=== PATIENT | female | born 1955 | race Caucasian/White ===

== ENCOUNTER 2019-05-22 01:44 | Day surgery (SDC) | payer OTHER, SELFPAY ==
[2019-05-15 10:19] VITALS: BMI 30.4
[2019-05-22 06:54] VITALS: BP 143/73; PULSE 54; RESP 16; TEMP 36.6; O2SAT 96
[2019-05-22] MEDS: LACTATED RINGERS 1,000 ML 150 ML IV CONT (07:07)
--- NOTE | 2019-05-22 07:38 | WPDANESEPPF ---
Anes - Initial Pre Proc Eval Procedure: Operation Date: 05/22/19 08:00 Proposed Procedures p Screening Colonoscopy - Sav Fuentes MD Date/Time: 05/22/19 07:38 Surgeon: Sav Fuentes MD Pre Op Diagnosis: Neoplasm Screening, Fam Hx of Colon Ca Patient Data Age: 64 Gender: F Height: 1.6 m Weight: 76.4 kg Last Vital Signs Temp 36.6 C 05/22/19 06:54 Pulse 54 L 05/22/19 06:54 Resp 16 05/22/19 06:54 BP 143/73 H 05/22/19 06:54 Pulse Ox 96 05/22/19 06:54 Allergies Allergy/AdvReac Type Severity Reaction Status Date / Time Sulfa (Sulfonamide Allergy Unknown Hives Verified 05/22/19 06:50 Antibiotics) doxycycline AdvReac Unknown Nausea Verified 05/22/19 06:50 poison sergio extract AdvReac Unknown Skin Verified 05/22/19 06:50 Reaction Home Medications Medication Instructions Recorded Confirmed Type aspirin 81 mg tablet,delayed 81 mg PO DAILY 03/25/19 05/22/19 History release diphenhydramine HCl 25 mg capsule 25 mg PO DAILY PRN cap 03/25/19 05/22/19 History lisinopril 10 mg tablet 10 mg PO DAILY 03/25/19 05/22/19 History metoprolol tartrate 25 mg tablet 25 mg PO BID #180 tablet 04/21/19 05/22/19 Rx clotrimazole [Lotrimin AF 1 applic TOPICAL BID 05/15/19 05/22/19 History (clotrimazole)] Patient hx anesthesia problems: none Family hx anesthesia problems: none PMFSH Past Medical History Medical History (Updated 05/22/19 @ 07:39 by Narinder Gilmore MD) Bunion of right foot (~2004) Elevated fasting glucose Elevated LDL cholesterol level Essential (primary) hypertension Overweight (BMI 25.0-29.9) Surgical History Surgical History History of colonoscopy (~05/18/13) History of hysterectomy (~1996) History of left oophorectomy History of right oophorectomy Social History Social History Smoking status: Never smoker Alcohol intake: current Anes - Eval Final PreProcedure Day of Procedure 05/22/19 07:38 Patient weight: overweight Heart: regular rate and rhythm Lungs: clear to auscultation and normal air movement Airway: Mallampati scale class II Neurological: alert and oriented Last oral intake: >/= 8 hours ASA classification: II Emergent: no Anesthetic plan: proceed Anesthesia type and monitoring: general GIVS Informed Consent: The patient's anesthetic plan and its attendant risks and benefits were discussed with the patient/family/POA. Questions were solicited and answers provided to the satisfaction of the patient/family/POA.
--- NOTE | 2019-05-22 08:07 | P.CONGI_ITS ---
Assessment and Plan Additional Plan This is a 64-year-old white female patient seen in evaluation at the request of Dr. Weiner. Patient presents for neoplasia screening. Her father had colon cancer. Her current weight appetite bowel movements are normal. She denies abdominal pain. She denies any blood in her stools. Her bowel movements are regular. Family history is significant her father had colon cancer. Past medical history is significant for hypertension, she has elevated cholesterol. Current medications include Lotrimin. Diphenhydramine. Lisinopril. Metoprolol. She has allergies include sulfa. Physical exam reveals her to be alert. Vital signs stable. HEENT exam unremarkable. Lungs are clear to auscultation and percussion. Heart is without murmur or extra sounds. Abdominal exam bowel sounds are present soft nontender with no hepatosplenomegaly. Digital external rectal exam is normal. Impression 1. Family history of colon cancer. Her father had colon cancer. Last colonoscopy was in 2013. Plan is for colonoscopy at this time. GI Consult Note Consult date/time: 05/22/19 08:07 HPI: Ashlee Cody is a 64 year old female [facility] Past Medical History Medical History (Updated 05/22/19 @ 07:39 by Narinder Gilmore MD) Bunion of right foot (~2004) Elevated fasting glucose Elevated LDL cholesterol level Essential (primary) hypertension Overweight (BMI 25.0-29.9) Surgical History Surgical History History of colonoscopy (~05/18/13) History of hysterectomy (~1996) History of left oophorectomy History of right oophorectomy Social History Social History Smoking status: Never smoker Alcohol intake: current Meds Home Medications and Allergies Home Medications Medication Instructions Recorded Confirmed Type aspirin 81 mg tablet,delayed 81 mg PO DAILY 03/25/19 05/22/19 History release diphenhydramine HCl 25 mg capsule 25 mg PO DAILY PRN cap 03/25/19 05/22/19 History lisinopril 10 mg tablet 10 mg PO DAILY 03/25/19 05/22/19 History metoprolol tartrate 25 mg tablet 25 mg PO BID #180 tablet 04/21/19 05/22/19 Rx clotrimazole [Lotrimin AF 1 applic TOPICAL BID 05/15/19 05/22/19 History (clotrimazole)] Allergies Allergy/AdvReac Type Severity Reaction Status Date / Time Sulfa (Sulfonamide Allergy Unknown Hives Verified 05/22/19 06:50 Antibiotics) doxycycline AdvReac Unknown Nausea Verified 05/22/19 06:50 poison sergio extract AdvReac Unknown Skin Verified 05/22/19 06:50 Reaction Vital Signs Vital Signs - 24 hr 05/22/19 06:54 Temperature 36.6 C Pulse Rate 54 L Respiratory Rate 16 Blood Pressure 143/73 H Pulse Oximetry 96
[2019-05-22 08:27] VITALS: BP 122/66; PULSE 54; RESP 17; O2SAT 99
[2019-05-22 08:37] VITALS: BP 96/75; PULSE 59; RESP 17; O2SAT 99
[2019-05-22 08:43] VITALS: BP 129/65; PULSE 57; RESP 18; O2SAT 98
== END 2019-05-22 08:57 | disposition home or self-care (01) ==
PROVIDERS: PCP Family Medicine; Visit Provider Internal Medicine Gastroenterology
PROC: 0DJD8ZZ Inspection of Lower Intestinal Tract, Via Natural or Artificial Opening Endoscopic (ICD-10-PCS; CPT 45378; principal; 2019-05-22 08:00)
DX: Z12.11 Encounter for screening for malignant neoplasm of colon (principal); K57.30 Diverticulosis of large intestine without perforation or abscess without bleeding; K64.8 Other hemorrhoids; Z80.0 Family history of malignant neoplasm of digestive organs; I10 Essential (primary) hypertension; E78.00 Pure hypercholesterolemia, unspecified; Z79.82 Long term (current) use of aspirin
CPT/HCPCS: 45378; J2704; J7120

== ENCOUNTER 2020-03-31 17:46 | Outpatient (CLI) | payer OTHER, SELFPAY ==
--- NOTE | ~2020-03-31 | MM_ITS ---
EXAMINATION: MM screening jorge BI w hellen HISTORY: Screening TECHNIQUE: Craniocaudal and mediolateral oblique 3-D tomosynthesis images were obtained and synthetic 2-D images were generated. CAD analysis was submitted and interpreted. COMPARISON: Comparison to multiple prior studies sequentially, with oldest reviewed study dated 08/2010. BREAST PARENCHYMAL COMPOSITION: There are scattered areas of fibroglandular density. FINDINGS: There is no evidence of suspicious mass, calcification, or architectural distortion to sugg est malignancy in either breast. There has been no suspicious interval change. IMPRESSION: 1. No mammographic evidence of malignancy. 2. Recommend routine screening mammography in one year. BI-RADS Category 1: Negative Reviewed, dictated and finalized at location A. ROOM LATHE OPERATOR
== END 2020-03-31 17:47 | disposition home or self-care (01) ==
PROVIDERS: PCP Family Medicine; Visit Provider Family Medicine
DX: Z12.31 Encounter for screening mammogram for malignant neoplasm of breast (principal)
CPT/HCPCS: 77063; 77067

== ENCOUNTER 2022-06-19 09:19 | Outpatient (CLI) | payer OTHER, SELFPAY ==
--- NOTE | ~2022-06-19 | MM_ITS ---
EXAMINATION: MM screening jorge BI w hellen HISTORY: Screening mammogram TECHNIQUE: Craniocaudal and mediolateral oblique 3-D tomosynthesis images were obtained and synthetic 2-D images were generated. CAD analysis was submitted and interpreted. COMPARISON: 03/31/2020, 09/06/2018 bilateral screening mammogram examinations BREAST PARENCHYMAL COMPOSITION: There are scattered areas of fibroglandular density. FINDINGS: There is no evidence of suspicious mass, calcification, or architectural distortion to sugg est malignancy in either breast. There has been no suspicious interval change. IMPRESSION: 1. No mammographic evidence of malignancy. 2. Recommend routine screening mammography in one year. BI-RADS Category 1: Negative Reviewed, dictated and finalized at location A. ING MACHINE SETTER
== END 2022-06-19 09:20 | disposition home or self-care (01) ==
PROVIDERS: PCP Family Medicine; Visit Provider Family Medicine
DX: Z12.31 Encounter for screening mammogram for malignant neoplasm of breast (principal)
CPT/HCPCS: 77063; 77067

== ENCOUNTER 2023-10-15 08:06 | Outpatient (CLI) | payer OTHER, SELFPAY ==
--- NOTE | ~2023-10-15 | NM_ITS ---
EXAMINATION: NM wesley stress w perfusion DATE: 10/15/2023 10:14 INDICATION: Atypical chest pain. Abnormal EKG. TECHNIQUE: Rest images were obtained following intravenous administration of 10.1 mCi Tc99m tetrofosm in (Myoview). The patient was infused intravenously with Lexiscan (Regadenoson). Then, 31.7 mCi Tc99m tetrofosmin (Myoview) was administered intravenously, and stress images were obtained. Data was tyrese nstructed into short axis and horizontal and vertical long axis SPECT images. Gated SPECT images were also obtained. COMPARISON: None. FINDINGS: There is no definite reversible or fixed perfusion abnormality to suggest ischemia or infar ction. There is normal left ventricular chamber size, wall motion and ejection fraction. Left ventr icular ejection fraction measures >70%. IMPRESSION: 1. Normal myocardial perfusion at rest and during stress. 2. Left ventricular ejection fraction measuring >70%. Reviewed, dictated and finalized at location B.
--- NOTE | 2023-10-15 08:15 | EST_ITS ---
Patient Info Name: Ashlee Cody Age: 68 years : 1955 Gender: Female Ht: 63 in Wt: 175 lbs BSA: 1.91 m2 HR: 48 bpm BP: 118 / 70 mmHg Heart Rhythm: Bradycardia Exam Date: 10/15/2023 9:06 AM Exam Location: [facility] Patient Status: Outpatient Admit Date: 10/15/2023 Staff Ordering Physician: Thu Weiner MD Attending Provider: Thu Weiner MD Exercise Technologist: Skylar Avila CT Exercise Physician: Yves Hyde DO Exam Type: CA stress wesley w NM Study Info Indications Z01.810 - Encounter for preprocedural cardiovascular examination A regadenoson stress test was performed. Summary 1. 1. Negative lexiscan stress test for ischemic ST changes by ECG criteria. 2. 2. Stable hemodynamics throughout the test. 3. 3. Nuclear scan to follow and will be reported separately. Please correlate with it. 4. 4. Patient informed of the above results. Protocol: Lexiscan Stress ECG Details Stage: REST Duration (min): 1 min : 4 sec HR (bpm): 50 SBP (mmHg): 118 DBP (mmHg): 70 Stage: REST Duration (min): 22 min : 39 sec HR (bpm): 49 SBP (mmHg): 118 DBP (mmHg): 70 Stage: STAGE 1 Duration (min): 0 min : 59 sec HR (bpm): 60 SBP (mmHg): 131 DBP (mmHg): 72 Stage: RECOVERY Duration (min): 1 min : 0 sec HR (bpm): 69 SBP (mmHg): 131 DBP (mmHg): 72 Stage: RECOVERY Duration (min): 2 min : 0 sec HR (bpm): 66 SBP (mmHg): 131 DBP (mmHg): 72 Stage: RECOVERY Duration (min): 3 min : 0 sec HR (bpm): 66 SBP (mmHg): 127 DBP (mmHg): 70 Stage: RECOVERY Duration (min): 3 min : 8 sec HR (bpm): 64 SBP (mmHg): 127 DBP (mmHg): 70 Rest HR: 49 bpm Peak HR: 70 bpm Rest Sys BP: 118 mmHg Peak Sys BP: 131 mmHg Max Pred HR: 153 bpm % Max Pred HR: 46 % Target HR: 130 bpm Max RPP: 9,170 bpm*mmHg Termination Reason: Completed protocol Cardiac Symptoms: Shortness of breath Total Time: 1 min : 0 sec Rest Poe BP: 70 mmHg Peak Poe BP: 72 mmHg Total Dose: 0.4 mg Resting ECG Sinus bradycardia. Stress ECG No ST changes. Arrhythmias None. Report Signatures
== END 2023-10-15 08:07 | disposition home or self-care (01) ==
LOC: ANHCARD 08:13
PROVIDERS: PCP Family Medicine; Visit Provider Family Medicine
DX: Z01.810 Encounter for preprocedural cardiovascular examination (principal); R07.89 Other chest pain
CPT/HCPCS: 78452; 93017; A9502; J2785

== ENCOUNTER 2024-02-13 08:28 | Outpatient (CLI) | payer OTHER, SELFPAY | END 2024-02-13 08:29 | disposition home or self-care (01) | LOC: ANHAUDIO 08:31 | PROVIDERS: PCP Family Medicine; Visit Provider Family Medicine | DX: H90.3 Sensorineural hearing loss, bilateral (principal) | CPT/HCPCS: 92557; 92567 ==

== ENCOUNTER 2024-06-19 00:49 | Day surgery (SDC) | payer OTHER, SELFPAY ==
[2024-06-05 14:09] VITALS: BMI 31.0
[2024-06-19 11:13] VITALS: BP 142/78; PULSE 61; RESP 16; TEMP 36.5; O2SAT 97; BMI 29.4
[2024-06-19] MEDS: LACTATED RINGERS 1,000 ML 150 ML IV CONT (11:35)
--- NOTE | 2024-06-19 12:10 | WPDANESEPPF ---
Anes - Initial Pre Proc Eval Procedure: Operation Date: 06/19/24 12:30 Proposed Procedures p Screening Colonoscopy - Olivier Love MD Date/Time: 06/19/24 12:10 Surgeon: Olivier Love MD Pre Op Diagnosis: screening colon Patient Data Age: 69 Gender: F Height: 1.6 m Weight: 75.4 kg Last Vital Signs Temp 36.5 C 06/19/24 11:13 Pulse 61 06/19/24 11:13 Resp 16 06/19/24 11:13 BP 142/78 H 06/19/24 11:13 Pulse Ox 97 06/19/24 11:13 O2 Del Method Room Air 06/19/24 11:13 Allergies Allergy/AdvReac Type Severity Reaction Status Date / Time Sulfa (Sulfonamide Allergy Unknown Hives Verified 06/19/24 11:12 Antibiotics) doxycycline AdvReac Unknown Nausea Verified 06/19/24 11:12 poison sergio extract AdvReac Unknown Skin Verified 06/19/24 11:12 Reaction Home Medications ?Medication ?Instructions ?Recorded ?Confirmed ?Type aspirin 81 mg tablet,delayed 81 mg PO DAILY 03/25/19 06/19/24 History release diphenhydramine HCl 25 mg capsule 25 mg PO DAILY PRN Allergy Symptoms 03/25/19 06/19/24 History (Benadryl) vit C 250 mg-vit E 90 mg-zinc 40 1 tablet PO DAILY 09/26/20 06/19/24 History mg-copper 1 [id number] capsule (PreserVision AREDS-2) lisinopril 10 mg tablet See Rx Instructions .Route 03/06/23 06/19/24 Rx .COMPLEX #90 tabs metoprolol tartrate 25 mg tablet See Rx Instructions .Route 03/06/23 06/19/24 Rx .COMPLEX #180 tabs simvastatin 20 mg tablet 20 mg PO DAILY #90 tabs 09/04/23 06/19/24 Rx Results Review: All pre-operative results and documents have been reviewed as part of the pre-operative evaluation. ON LICENSE OF [facility] Past Medical History Medical History Hyperhidrosis IT band syndrome Overweight (BMI 25.0-29.9) Bunion of right foot (~2004) Essential (primary) hypertension Surgical History Surgical History History of right oophorectomy History of left oophorectomy History of hysterectomy (~1996) History of colonoscopy (~05/18/13) Family History Family History Sibling Hypertension Family history of elevated blood lipids Mother Hypertension H/O scarlet fever Father Family history of elevated blood lipids Other Carcinoma of colon Family history of cardiovascular disease Social History Social History Smoking status: Never smoker Alcohol intake: current Drinks per week: 7 Alcohol use details: 1/2 glass a wine a day Substance use: never Substance use type: does not use Do You Feel Safe in your Home?: Yes Lack of Transportation: No Lack of Food: Never True Current Housing: I Have Housing Concerned About Future Housing: No Difficulty Paying Gas/Electric Bills: No Difficulty Paying for Meds: No Currently Unemployed: No Education: Bachelor's Degree Difficulty w/ Childcare or Family Care: No Living arrangements: alone Spiritual care concerns: No Anes - Eval Final PreProcedure Day of Procedure 06/19/24 12:10 Patient weight: overweight Heart: regular rate and rhythm Lungs: clear to auscultation Airway: Mallampati scale class II Neurological: alert and oriented Last oral intake: >/= 8 hours ASA classification: III Emergent: no Anesthetic plan: proceed Anesthesia type and monitoring: general GIVS and standard monitoring Results Review: All pre-operative results and documents have been reviewed as part of the pre-operative evaluation. Informed Consent: The patient's anesthetic plan and its attendant risks and benefits were discussed with the patient/family/POA. Questions were solicited and answers provided to the satisfaction of the patient/family/POA.
--- NOTE | 2024-06-19 12:25 | PM.HPGS ---
History of Present Illness History of Present Illness Consent: Risks, benefits, and alternatives have been discussed and questions answered. Patient agrees to proceed with procedure. Chief complaint: screening colon Narrative: Ashlee Cody is a 69 year old female here for colonoscopy, last one 2019, father had colon cancer Review of Systems Review of Systems: All systems reviewed & are unremarkable except as noted in HPI and below PMFSH Past Medical History Medical History (Updated 06/19/24 @ 12:26 by Olivier Love MD) Family history of colon cancer in father Hyperhidrosis IT band syndrome Overweight (BMI 25.0-29.9) Bunion of right foot (~2004) Essential (primary) hypertension Surgical History Surgical History History of right oophorectomy History of left oophorectomy History of hysterectomy (~1996) History of colonoscopy (~05/18/13) Family History Family History Sibling Hypertension Family history of elevated blood lipids Mother Hypertension H/O scarlet fever Father Family history of elevated blood lipids Other Carcinoma of colon Family history of cardiovascular disease Social History Social History Smoking status: Never smoker Alcohol intake: current Drinks per week: 7 Alcohol use details: 1/2 glass a wine a day Substance use: never Substance use type: does not use Do You Feel Safe in your Home?: Yes Lack of Transportation: No Lack of Food: Never True Current Housing: I Have Housing Concerned About Future Housing: No Difficulty Paying Gas/Electric Bills: No Difficulty Paying for Meds: No Currently Unemployed: No Education: Bachelor's Degree Difficulty w/ Childcare or Family Care: No Living arrangements: alone Spiritual care concerns: No Meds Home Medications and Allergies Home Medications ?Medication ?Instructions ?Recorded ?Confirmed ?Type aspirin 81 mg tablet,delayed 81 mg PO DAILY 03/25/19 06/19/24 History release diphenhydramine HCl 25 mg capsule 25 mg PO DAILY PRN Allergy Symptoms 03/25/19 06/19/24 History (Benadryl) vit C 250 mg-vit E 90 mg-zinc 40 1 tablet PO DAILY 09/26/20 06/19/24 History mg-copper 1 [id number] capsule (PreserVision AREDS-2) lisinopril 10 mg tablet See Rx Instructions .Route 03/06/23 06/19/24 Rx .COMPLEX #90 tabs metoprolol tartrate 25 mg tablet See Rx Instructions .Route 03/06/23 06/19/24 Rx .COMPLEX #180 tabs simvastatin 20 mg tablet 20 mg PO DAILY #90 tabs 09/04/23 06/19/24 Rx Allergies Allergy/AdvReac Type Severity Reaction Status Date / Time Sulfa (Sulfonamide Allergy Unknown Hives Verified 06/19/24 11:12 Antibiotics) doxycycline AdvReac Unknown Nausea Verified 06/19/24 11:12 poison sergio extract AdvReac Unknown Skin Verified 06/19/24 11:12 Reaction Vital Signs Vital Signs - 24 hr 06/19/24 11:13 Temperature 97.7 F Pulse Rate 61 Respiratory Rate 16 Blood Pressure 142/78 H Pulse Oximetry 97 Oxygen Delivery Room Air Exam Const: General: comfortable and no acute distress HENMT: Face/Nose/Sinus: Normal nares present Eyes: General: appearance normal, both eyes and all related structures Neck: Neck: no JVD Resp: Auscultation: clear to auscultation bilaterally Cardio: Rate: regular rate Rhythm: regular rhythm GI: Inspection: non-distended GI Palp: Yes Soft to palpation Skin: General skin exam: normal color Neuro: General: gait normal Speech: normal speech Extrem: General: normal to inspection Psych: Mental Status: mental status grossly normal Assessment and Plan Assessment and plan (1) Family history of colon cancer in father: Code(s): Z80.0 - Family history of malignant neoplasm of digestive organs Status: Acute Assessment and Plan: colonoscopy
[2024-06-19 12:42] VITALS: BP 117/64; PULSE 52; RESP 19; O2SAT 95
[2024-06-19 12:52] VITALS: BP 122/63; PULSE 51; RESP 20; O2SAT 96
[2024-06-19 13:02] VITALS: BP 119/56; PULSE 53; RESP 21; O2SAT 94
== END 2024-06-19 13:20 | disposition home or self-care (01) ==
PROVIDERS: PCP Family Medicine; Referring Provider Student in an Organized Health Care Education/Training Program; Visit Provider Internal Medicine Gastroenterology
PROC: 0DJD8ZZ Inspection of Lower Intestinal Tract, Via Natural or Artificial Opening Endoscopic (ICD-10-PCS; CPT 45378; principal; 2024-06-19 12:30)
DX: Z12.11 Encounter for screening for malignant neoplasm of colon (principal); Z80.0 Family history of malignant neoplasm of digestive organs; D12.2 Benign neoplasm of ascending colon; K57.30 Diverticulosis of large intestine without perforation or abscess without bleeding; K64.8 Other hemorrhoids; I10 Essential (primary) hypertension
CPT/HCPCS: 45385; 88305; J2003; J2704; J7120